=== PATIENT | male | born 1955 | race Caucasian/White ===

== ENCOUNTER 2017-07-12 18:13 | Emergency (ER) | payer BC ==
[~2017-07-12] VITALS: Ht 182.9 cm; Wt 88.6 kg
[~2017-07-12 18:13] MED LIST: FLOMAX 0.40.4 MG/CAP PO; NEURONTIN300 MG/CAP PO; NO HOME MEDICATIONS; PROTONIX 40MG T40 MG PO; REGLAN 10MG10 MG/TAB PO; ZOFRAN 4MG T4 MG/TAB PO
[2017-07-12 18:37] LABS: BASO % 0.5 % (0.0-2.0); EOS # 0.1 (0.0-0.7); EOS % 1.4 % (0-4.0); GRAN # 4.5 (1.4-6.5); GRAN % 67.3 % (42.2-75.2); LYMPH # 1.3 (1.2-3.4); LYMPH % 20.2 % (20.0-51.0); MEAN CELL VOLUME 88 fl (80.0-100.0); MEAN CORPUSCULAR HGB CONC 34 g/dl (33.0-37.0); MEAN PLATELET VOLUME 10.1 fl (7.4-10.4); MONO # 0.7 (0.1-0.6); MONO % 10.1 % (1.7-9.3); PLATELET COUNT 156 K/mm3 (130-400); WHITE BLOOD COUNT 6.6 K/mm3 (4.8-10.8)
[2017-07-12 18:38] LABS: HEMOGLOBIN 18.1 g/dl (13.5-18.0); MEAN CORPUSCULAR HEMOGLOBIN 30 pg (27.0-31.0)
[2017-07-12] MEDS ORDERED: NEURONTIN300 MG/CAP PO (18:53)
[2017-07-12 18:55] LABS: ADJUSTED CALCIUM 8.9 mg/dL (8.4-10.2); ALANINE AMINOTRANSFERASE 50 U/L (21-72); ALBUMIN 4.7 gm/dL (3.5-5.0); ALKALINE PHOSPHATASE 95 U/L (50-136); ANION GAP 9 mmol/L (7-16); BILIRUBIN,TOTAL 2.1 mg/dL (0.0-1.0); BLOOD UREA NITROGEN 15 mg/dL (9-20); CALCIUM 9.5 mg/dL (8.4-10.2); CARBON DIOXIDE 30 mmol/L (22-30); CHLORIDE 98 mmol/L (98-107); CREATININE, serum 0.99 mg/dL (0.66-1.25); GLUCOSE 100 mg/dL (74-106); LIPASE 72 U/L (23-300); POTASSIUM 3.9 mmol/L (3.4-5.0); SODIUM 138 mmol/L (137-145); TOTAL PROTEIN 7.6 gm/dL (6.4-8.2)
[2017-07-12] MEDS ORDERED: HCTZ 25MG TAB25 MG PO (18:55)
[2017-07-12] MEDS ORDERED: NEURONTIN800 MG/TAB PO (18:57)
[2017-07-12] MEDS ORDERED: KLONOPIN 1MG1 MG PO (18:58)
[2017-07-12] MEDS ORDERED: PROSCAR 5MG5 MG PO (18:59)
[2017-07-12 19:03] LABS: C-REACTIVE PROTEIN < 0.5 mg/dL (0.0-0.9); TROPONIN-I < 0.012 ng/mL (0.000-0.034)
[2017-07-12 19:50] VITALS: BP 139/103; PULSE 57
== END 2017-07-12 19:50 | disposition home or self-care (01) ==
LOC: COL.ER 18:13
PROVIDERS: Emergency Medicine
DX: R07.89 Other chest pain (principal); I10 Essential (primary) hypertension; K21.9 Gastro-esophageal reflux disease without esophagitis; N40.0 Benign prostatic hyperplasia without lower urinary tract symptoms